=== PATIENT | male | born 1975 | race Caucasian/White ===

== ENCOUNTER 2019-12-09 15:48 | Emergency (ER) | payer OTHER ==
[2019-12-09 16:09] VITALS: TEMP 98.6
[2019-12-09] MEDS ORDERED: ACET/COD 300 MG/30 MG STARTER PACK 6 TAB BTL PO STA (16:28)
[2019-12-09] MEDS ORDERED: IBUPROFEN 600 MG TAB PO STA (16:28)
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
[2019-12-09 18:42] VITALS: BP 134/94; PULSE 68; RESP 17
== END 2019-12-09 18:41 | disposition home or self-care (01) ==
LOC: EC 15:48
DX: S00.83XA Contusion of other part of head, initial encounter (principal); Z88.0 Allergy status to penicillin; V49.40XA Driver injured in collision with unspecified motor vehicles in traffic accident, initial encounter; Y92.410 Unspecified street and highway as the place of occurrence of the external cause; Y93.89 Activity, other specified
CPT/HCPCS: 70450; 70486; 72125; 99284